=== PATIENT | female | born 1930 | race Caucasian/White ===

== ENCOUNTER 2017-05-10 12:11 | Emergency (ER) | payer MEDICARE, BC ==
[~2017-05-10] VITALS: Ht 152.4 cm; Wt 54.4 kg
[~2017-05-10 12:11] MED LIST: ACET500T33 PO; ASPI-482 PO; ATOR10TA60 PO; CELE200C PO; CYAN100072 PO; DASA50TA PO; FURO-68 PO; FURO20TA3 PO; GABA-586 PO; LOSA50TA6 PO; METO25TA4 PO; METO50TA2 PO; POTA10TA12 PO
[2017-05-10] MEDS ORDERED: fentaNYL PF VIAL 100 MCG/2 ML VIAL IV PRN (14:15)
[2017-05-10] MEDS ORDERED: ONDANSETRON PF 4 MG/2 ML VIAL. IV ONE (14:15)
--- NOTE | 2017-05-10 14:49 | EKG ---
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
[2017-05-10 14:55] LABS: BILIRUBIN,URINE NEGATIVE (NEG); GLUCOSE,URINE NEGATIVE (NEG)
[2017-05-10 14:56] LABS: NITRITE,URINE NEGATIVE (NEG); PROTEIN,URINE NEGATIVE (NEG-TRACE)
[2017-05-10 14:58] LABS: BACTERIA,URINE FEW /HPF (0-FEW); RBC,URINE OCC /HPF (0-2); SQUAMOUS EPITHELIAL CELL,UR OCC /LPF
[2017-05-10 15:17] LABS: BASO # 0.1 x10^3/uL (0.0-0.2); BASO % 1 % (0-3); EOS % 1 % (0-3); HEMOGLOBIN 13.8 g/dL (12.0-15.5); LYMPH # 1.8 x10^3/uL (1.0-4.8); LYMPH % 18 % (24-48); MEAN CORPUSCULAR HEMOGLOBIN 31 pg (25-35); MEAN CORPUSCULAR HGB CONC 35 g/dL (31-37); MEAN CORPUSCULAR VOLUME 89 fL (79-100); MONO % 6 % (0-9); NEUT % 74 % (31-73); PLATELET COUNT 320 x10^3/uL (140-400); RED BLOOD COUNT 4.48 x10^6/uL (3.50-5.40); RED CELL DISTRIBUTION WIDTH 13.1 % (11.5-14.5); WHITE BLOOD COUNT 9.8 x10^3/uL (4.0-11.0)
[2017-05-10 15:29] LABS: CALCIUM 9.3 mg/dL (8.5-10.1); CREATININE 0.6 mg/dL (0.6-1.0); GFR 94.8; POTASSIUM 4.3 mmol/L (3.5-5.1)
[2017-05-10 15:33] LABS: ALBUMIN/GLOBULIN RATIO 1.1 (1.0-1.7); TOTAL BILIRUBIN 1.1 mg/dL (0.2-1.0); TOTAL PROTEIN 7.8 g/dL (6.4-8.2)
[2017-05-10] MEDS ORDERED: IOHEXOL 300 MG/ML 75 ML VIAL IV ONE (15:45)
--- NOTE | 2017-05-10 16:25 | RAD ---
Indication abdominal pain. Weight loss. The history of leukemia and radiation therapy is noted. Axial images through the abdomen and pelvis were obtained. Approximately 70 cc of Isovue-300 was administered intravenously. No oral contrast was administered. No similar imaging is available. There is coronary artery calcification. No acute or significant finding is seen at either lung base. The liver appears unremarkable and the gallbladder appears grossly normal. No splenic abnormality is seen. The spleen is normal in size. No pancreatic abnormality is seen. The adrenal glands and kidneys appear unremarkable. Significant central or retroperitoneal adenopathy is not seen and an acute finding in the abdomen is not seen. In the pelvis no acute or significant finding is seen. There is scoliosis. There are degenerative changes involving the lumbar spine predominantly centered at L4-5. There is marked disc space narrowing at this level and there is moderate anterior spondylolisthesis of L4 relative to L5 IMPRESSION: No acute finding seen in the abdomen or pelvis. Chronic musculoskeletal changes
[2017-05-10] MEDS ORDERED: IV NORMAL SALINE 500ML BAG 500 ML IV ONE (16:45)
[2017-05-10] MEDS ORDERED: ONDA4TAB7 PO (18:20)
[2017-05-10 18:38] VITALS: BP 140/85
--- NOTE | 2017-05-10 21:06 | ED.ADGEN ---
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 Patient states that when she wakes up in the morning she experiences a left-sided cramping abdominal pain, associated with nausea. She states that this tends to improve after she eats breakfast in the morning, but has been intermittent throughout her last several days as stated. She states that she sometimes feels as though she has less of an appetite. She denies any vomiting or diarrhea, states her last bowel movement was yesterday, and although with small was normal. She denies any injuries, any recent travel or surgery, any swelling extremities, any rashes, any upper or lower respiratory type symptoms, any chest pain or shortness of breath. Patient was seen by her primary care provider, and sent to the ED for additional evaluation due to the persistence of her symptoms. She is not previously had any abdominal surgeries. Review of Systems Review of Systems Constitutional: Denies fever or chills. [] Eyes: Denies change in visual acuity. [] HENT: Denies nasal congestion or sore throat. [] Respiratory: Denies cough or shortness of breath. [] Cardiovascular: Denies chest pain or edema. [] GI: Left-sided abdominal pain, aching, intermittent, associated with nausea. : Denies dysuria. [] Musculoskeletal: Denies back pain or joint pain. [] Integument: Denies rash. [] Neurologic: Denies headache, focal weakness or sensory changes. [] Endocrine: Denies polyuria or polydipsia. [] Lymphatic: Denies swollen glands. [] Psychiatric: Denies depression or anxiety. [] Current Medications Current Medications Current Medications Medications (Trade) Dose Ordered Sig/Moses Start Time Stop Time Status Last Admin Dose Admin Fentanyl Citrate (Fentanyl 2ml Vial) 25 mcg PRN Q15MIN PRN 05/10/17 14:15 05/10/17 18:53 DC 05/10/17 15:14 25 MCG Iohexol (Omnipaque 300 Mg/ml) 75 ml 1X ONCE 05/10/17 15:45 05/10/17 15:46 DC 05/10/17 15:48 75 ML Ondansetron HCl (Zofran) 4 mg 1X ONCE 05/10/17 14:15 05/10/17 14:16 DC 05/10/17 15:14 4 MG Sodium Chloride 500 ml @ 500 mls/hr 1X ONCE 05/10/17 16:45 05/10/17 17:44 DC 05/10/17 16:45 500 MLS/HR Allergies Allergies Allergies Coded Allergies Type Severity Reaction Last Updated Verified No Known Drug Allergies 08/31/16 No Physical Exam Physical Exam Constitutional: Well developed, well nourished, no acute distress, non-toxic appearance. [] HENT: Normocephalic, atraumatic, bilateral external ears normal, oropharynx moist, no oral exudates, nose normal. [] Eyes: PERRLA, EOMI, conjunctiva normal, no discharge. [] Neck: Normal range of motion, no tenderness, supple, no stridor. [] Cardiovascular:Heart rate regular rhythm, no murmur, S1, S2, rubs or gallops. [] Lungs & Thorax: Bilateral breath sounds clear to auscultation, no wheezing, rhonchi, rales. No chest or crepitus or tenderness. [] Abdomen: Bowel sounds normal, soft, no tenderness, no rebound, rigidity, no guarding, no masses, no pulsatile masses. [] Skin: Warm, dry, no erythema, no rash. [] Back: No tenderness, no CVA tenderness. [] Extremities: No tenderness, no cyanosis, no clubbing, ROM intact, no edema. [] Neurologic: Alert and oriented X 3, normal motor function, normal sensory function, no focal deficits noted. [] Psychologic: Affect normal, judgement normal, mood normal. [] Current Patient Data Vital Signs Vital Signs Date Time Temp Pulse Resp B/P (MAP) Pulse Ox O2 Delivery O2 Flow Rate FiO2 05/10/17 18:38 90 24 140/85 (103) 95 Room Air 05/10/17 14:05 97.8 97.8 Lab Values Laboratory Tests Test 05/10/17 14:03 05/10/17 14:58 Urine Collection Type Void Urine Color Yellow Urine Clarity Clear Urine pH 6.0 Urine Specific [place] 1.020 Urine Protein Negative mg/dL (NEG-TRACE) Urine Glucose (UA) Negative mg/dL (NEG) Urine Ketones (Stick) 15 mg/dL (NEG) Urine Blood Trace (NEG) Urine Nitrite Negative (NEG) Urine Bilirubin Negative (NEG) Urine Urobilinogen Dipstick 1.0 mg/dL (0.2 mg/dL) Urine Leukocyte Esterase Small (NEG) Urine RBC Occ /HPF (0-2) Urine WBC 1-4 /HPF (0-4) Urine Squamous Epithelial Cells Occ /LPF Urine Bacteria Few /HPF (0-FEW) Urine Mucus Slight /LPF White Blood Count 9.8 x10^3/uL (4.0-11.0) Red Blood Count 4.48 x10^6/uL (3.50-5.40) Hemoglobin 13.8 g/dL (12.0-15.5) Hematocrit 40.0 % (36.0-47.0) Mean Corpuscular Volume 89 fL (79-100) Mean Corpuscular Hemoglobin 31 pg (25-35) Mean Corpuscular Hemoglobin Concent 35 g/dL (31-37) Red Cell Distribution Width 13.1 % (11.5-14.5) Platelet Count 320 x10^3/uL (140-400) Neutrophils (%) (Auto) 74 % (31-73) H Lymphocytes (%) (Auto) 18 % (24-48) L Monocytes (%) (Auto) 6 % (0-9) Eosinophils (%) (Auto) 1 % (0-3) Basophils (%) (Auto) 1 % (0-3) Neutrophils # (Auto) 7.3 x10^3uL (1.8-7.7) Lymphocytes # (Auto) 1.8 x10^3/uL (1.0-4.8) Monocytes # (Auto) 0.5 x10^3/uL (0.0-1.1) Eosinophils # (Auto) 0.0 x10^3/uL (0.0-0.7) Basophils # (Auto) 0.1 x10^3/uL (0.0-0.2) Sodium Level 140 mmol/L (136-145) Potassium Level 4.3 mmol/L (3.5-5.1) Chloride Level 100 mmol/L (98-107) Carbon Dioxide Level 30 mmol/L (21-32) Anion Gap 10 (6-14) Blood Urea Nitrogen 11 mg/dL (7-20) Creatinine 0.6 mg/dL (0.6-1.0) Estimated GFR (Cockcroft-Gault) 94.8 BUN/Creatinine Ratio 18 (6-20) Glucose Level 104 mg/dL (70-99) H Lactic Acid Level 1.0 mmol/L (0.4-2.0) Calcium Level 9.3 mg/dL (8.5-10.1) Total Bilirubin 1.1 mg/dL (0.2-1.0) H Aspartate Amino Transferase (AST) 28 U/L (15-37) Alanine Aminotransferase (ALT) 27 U/L (14-59) Alkaline Phosphatase 98 U/L (46-116) Total Protein 7.8 g/dL (6.4-8.2) Albumin 4.0 g/dL (3.4-5.0) Albumin/Globulin Ratio 1.1 (1.0-1.7) Lipase 263 U/L (73-393) Laboratory Tests 05/10/17 14:58 Laboratory Tests 05/10/17 14:58 EKG EKG EC: Sinus rhythm, heart rate 86 beats minute, left axis deviation, mild baseline artifact noted, QTc of 436, [place] 170, QRS is 62, no ST elevations or depressions identified. Aside from left axis deviation, no other abnormalities identified. As interpreted by me. [] Radiology/Procedures Radiology/Procedures [] [address] [place] [address] IMAGING REPORT Signed PATIENT: HERMES STEVEN ACCOUNT: [id number] : 1930 LOCATION: ER AGE: 86 SEX: F EXAM STATUS: REG ER ORD. PHYSICIAN: SAIDA KNIGHT DO REASON: abd pain/weight loss PROCEDURE: CT ABD PELV W/ IV CONTRST ONLY Indication abdominal pain. Weight loss. The history of leukemia and radiation therapy is noted. Axial images through the abdomen and pelvis were obtained. Approximately 70 cc of Isovue-300 was administered intravenously. No oral contrast was administered. No similar imaging is available. There is coronary artery calcification. No acute or significant finding is seen at either lung base. The liver appears unremarkable and the gallbladder appears grossly normal. No splenic abnormality is seen. The spleen is normal in size. No pancreatic abnormality is seen. The adrenal glands and kidneys appear unremarkable. Significant central or retroperitoneal adenopathy is not seen and an acute finding in the abdomen is not seen. In the pelvis no acute or significant finding is seen. There is scoliosis. There are degenerative changes involving the lumbar spine predominantly centered at L4-5. There is marked disc space narrowing at this level and there is moderate anterior spondylolisthesis of L4 relative to L5 IMPRESSION: No acute finding seen in the abdomen or pelvis. Chronic musculoskeletal changes DICTATED and SIGNED BY: MANUEL ALTMAN MD DATE: 05/10/17 1614 CC: SHERRELL WOOD MD; SAIDA KNIGHT DO ~ Course & Med Decision Making Course & Med Decision Making Pertinent Labs and Imaging studies reviewed. (See chart for details) Patient well-appearing, isn't experiencing any symptoms currently in the ED. States she has had weight loss over the past year. Based on age and symptoms, will obtain CT imaging, laboratory studies, patient voices understanding and agreement. Lipitor studies reveal urinalysis with mild ketones at 15, otherwise unremarkable. CT of abdomen and pelvis did not reveal any evidence of acute abdominal symptoms, patient noted to have musculoskeletal changes, findings as above were discussed with patient, she states that she is feeling much better, and would like to go home. However patient's daughter has left the emergency department as she had to perform work duties, and patient would like to have the daughter present for additional conversation. We did speak with the patient' s daughter, who was able to return to the emergency department, I did review findings as above with patient's daughter as well, she is in agreement along with her mother with plan for the patient be discharged home, to continue medications as directed, to follow-up with a primary care provider, and patient states she will return to the ED if any new or concerning symptoms develop. She was given a 500 mL bolus of normal saline, is tolerating by mouth fluids in the ED without issue. Patient discharged home in stable condition with her daughter with plan and precautions as above. Dragon Disclaimer Dragon Disclaimer This electronic medical record was generated, in whole or in part, using a voice recognition dictation system. Departure Impression: Primary Impression: Abdominal pain Disposition: 01 HOME, SELF-CARE Condition: IMPROVED Scripts Ondansetron Hcl (ZOFRAN) 4 Mg Tablet 1 TAB PO Q8HRS Y for NAUSEA, #12 TAB Prov: SAIDA KNIGHT DO 05/10/17 SAIDA KNIGHT DO May 10, 2017 21:06
== END 2017-05-10 18:45 | disposition home or self-care (01) ==
LOC: ER 12:11
DX: R10.9 Unspecified abdominal pain (principal); R11.0 Nausea; E78.00 Pure hypercholesterolemia, unspecified; I27.2 Other secondary pulmonary hypertension; I11.0 Hypertensive heart disease with heart failure; I50.9 Heart failure, unspecified; C92.10 Chronic myeloid leukemia, BCR/ABL-positive, not having achieved remission
CPT/HCPCS: 36415; 74177; 80053; 81001; 83605; 83690; 85027; 87086; 93005; 96361; 96374; 96375; 99285; J2405; J3010; J7040; Q9967

== ENCOUNTER 2019-09-07 13:03 | Inpatient (IN) | payer MEDICARE, BC ==
[~2019-09-07] VITALS: Ht 152.4 cm; Wt 65.4 kg
[~2019-09-07 13:03] MED LIST changes: -GABA-586 PO; +GABA300C18 PO; +LOSA-73 PO; -LOSA50TA6 PO; -METO50TA2 PO; +METO50TA6 PO; +ONDA4TAB7 PO
[2019-09-07] MEDS ORDERED: IPRATRPIUM/ALBUTEROL 0.5/2.5MG 3 ML NEBU. NEB ONE (13:15)
[2019-09-07 13:37] LABS: BASO % 0 % (0-3); EOS # 0.2 x10^3/uL (0.0-0.7); EOS % 2 % (0-3); HEMATOCRIT 41.6 % (36.0-47.0); HEMOGLOBIN 13.6 g/dL (12.0-15.5); LYMPH % 19 % (24-48); MEAN CORPUSCULAR HEMOGLOBIN 30 pg (25-35); MEAN CORPUSCULAR HGB CONC 33 g/dL (31-37); MEAN CORPUSCULAR VOLUME 93 fL (79-100); MONO # 0.5 x10^3/uL (0.0-1.1); MONO % 4 % (0-9); NEUT # 7.9 x10^3/uL (1.8-7.7); NEUT % 75 % (31-73); PLATELET COUNT 319 x10^3/uL (140-400); RED BLOOD COUNT 4.49 x10^6/uL (3.50-5.40); RED CELL DISTRIBUTION WIDTH 13.7 % (11.5-14.5); WHITE BLOOD COUNT 10.6 x10^3/uL (4.0-11.0)
--- NOTE | 2019-09-07 13:43 | RAD ---
PORTABLE CHEST 1V Clinical History: Aspiration Technique: AP view of the chest was obtained at 09/07/2019 1:10 PM. Comparison: September 10, 2016. Findings: The heart is mildly enlarged. The pulmonary vessels appear normal. There is multiple calcified granuloma on the right. Impression: Stable appearance of the chest. Electronically signed by: Tacho Lentz III, MD (09/07/2019 1:40 PM) [facility]
[2019-09-07 13:45] LABS: PROTHROMBIN TIME PATIENT 12.7 SEC (11.7-14.0)
[2019-09-07 13:46] LABS: CALCIUM 8.7 mg/dL (8.5-10.1); CREATININE 0.8 mg/dL (0.6-1.0); GFR 67.5; POTASSIUM 3.5 mmol/L (3.5-5.1)
[2019-09-07 13:51] LABS: ALBUMIN 3.8 g/dL (3.4-5.0); TOTAL BILIRUBIN 0.8 mg/dL (0.2-1.0); TOTAL PROTEIN 7.7 g/dL (6.4-8.2)
--- NOTE | 2019-09-07 14:49 | PDOC1 ---
History and Physical Date of Admission Date of Admission DATE: 09/07/19 TIME: 14:44 Identification/Chief Complaint Chief Complaint Choking Source Source: Patient History of Present Illness History of Present Illness Ms Adams is an 89yo F w/ PMHx HTN, CML in remission who came in choking on piece of meat, was hypoxic into the 70s, received hemilich maneuver and dislodged the meat. Trop of 0.061 and glucose 174. CXR was clear. Her adopted daughter is bedside. She is in good spirits and asking for a soft diet for dinner. Past Medical History Cardiovascular: CHF, HTN, Valve insufficiency Pulmonary: Bronchitis GI: Constipation Heme/Onc: Cancer (CML) Hepatobiliary: No pertinent hx Psych: No pertinent hx Rheumatologic: No pertinent hx Infectious disease: No pertinent hx ENT: No pertinent hx Renal/: No pertinent hx Endocrine: No pertinent hx Dermatology: No pertinent hx Past Surgical History Past Surgical History: No pertinent history Family History Family History: Hypertension Social History Smoke: No ALCOHOL: none Drugs: None Current Medications Current Medications Current Medications Albuterol/ Ipratropium (Duoneb) 3 ml 1X ONCE NEB Last administered on 09/07/19at 13:25; Start 09/07/19 at 13:15; Stop 09/07/19 at 13:16; Status DC Albuterol/ Ipratropium (Duoneb) 3 ml RTQID NEB ; Start 09/07/19 at 16:00; Stop 09/08/19 at 15:59 Active Scripts Active Zofran (Ondansetron Hcl) 4 Mg Tablet 1 Tab PO Q8HRS PRN Lasix (Furosemide) 40 Mg Tablet 40 Mg PO BID Reported Atorvastatin Calcium 10 Mg Tablet 10 Mg PO DAILY Potassium Chloride 10 Meq Tablet.er 30 Meq PO DAILY Sprycel (Dasatinib) 50 Mg Tablet 50 Mg PO DAILY Metoprolol Tartrate 25 Mg Tablet 1 Tab PO DAILY16 Celebrex (Celecoxib) 200 Mg Capsule 1 Cap PO DAILY Tylenol Extra Strength (Acetaminophen) 500 Mg Tablet 500 Mg PO DAILY B-12 (Cyanocobalamin (Vitamin B-12)) 1,000 Mcg Tablet 1,000 Mcg PO DAILY Aspir 81 (Aspirin) 81 Mg Tablet.dr 1 Tab PO DAILY Metoprolol Tartrate 50 Mg Tablet 1 Tab PO DAILY07 Gabapentin 300 Mg Capsule 300 Mg PO BID Losartan Potassium 50 Mg Tablet 50 Mg PO DAILY Allergies Allergies: Coded Allergies: No Known Drug Allergies (Unverified , 08/31/16) ROS General: No: Chills, Night Sweats, Fatigue, Malaise, Appetite, Other PSYCHOLOGICAL ROS: No: Anxiety, Behavioral Disorder, Concentration difficultie, Decreased libido, Depression, Disorientation, Hallucinations, Hostility, Irritablity, Memory difficulties, Mood Swings, Obsessive thoughts, Physical abuse, Sexual abuse, Sleep disturbances, Suicidal ideation, Other Eyes: No Blurry vision, No Decreased vision, No Double vision, No Dry eyes, No Excessive tearing, No Eye Pain, No Itchy Eyes, No Loss of vision, No Photophobia, No Scotomata, No Uses contacts, No Uses glasses, No Other HEENT: No: Heacaches, Visual Changes, Hearing change, Nasal congestion, Nasal discharge, Oral lesions, Sinus pain, Sore Throat, Epistaxis, Sneezing, Snoring, Tinnitus, Vertigo, Vocal changes, Other ALLERGY AND IMMUNOLOGY: No: Hives, Insect Bite Sensitivity, Itchy/Watery Eyes, Nasal Congestion, Post Nasal Drip, Seasonal Allergies, Other Hematological and Lymphatic: No: Bleeding Problems, Blood Clots, Blood Transfusions, Brusing, Night Sweats, Pallor, Swollen Lymph Nodes, Other ENDOCRINE: No: Breast Changes, Galactorrhea, Hair Pattern Changes, Hot Flashes, Malaise/lethargy, Mood Swings, Palpitations, Polydipsia/polyuria, Skin Changes, Temperature Intolerance, Unexpected Weight Changes, Other Breast: No New/Changing Breast Lumps, No Nipple changes, No Nipple discharge, No Other Respiratory: No: Cough, Hemoptysis, Orthopnea, Pleuritic Pain, Shortness of breath, SOB with excertion, Sputum Changes, Stridor, Tachypnea, Wheezing, Other Cardiovascular: No Chest Pain, No Palpitations, No Orthopnea, No Paroxysmal Noc. Dyspnea, No Edema, No Lt Headedness, No Other Gastrointestinal: No Nausea, No Vomiting, No Abdominal Pain, No Diarrhea, No Constipation, No Melena, No Hematochezia, No Other Genitourinary: No Dysuria, No Frequency, No Incontinence, No Hematuria, No Retention, No Discharge, No Urgency, No Pain, No Flank Pain, No Other, No , No , No , No , No , No , No Musculoskeletal: No Gait Disturbance, No Joint Pain, No Joint Stiffness, No Joint Swelling, No Muscle Pain, No Muscular Weakness, No Pain In:, No Swelling In:, No Other Neurological: No Behavorial Changes, No Bowel/Bladder ControlChng, No Confusion, No Dizziness, No Gait Disturbance, No Headaches, No Impaired Coord/balance, No Memory Loss, No Numbness/Tingling, No Seizures, No Speech Problems, No Tremors, No Visual Changes, No Weakness, No Other Skin: No Dry Skin, No Eczema, No Hair Changes, No Lumps, No Mole Changes, No Mottling, No Nail Changes, No Pruritus, No Rash, No Skin Lesion Changes, No Other, No Acne Physical Exam General: Alert, Oriented X3, Cooperative, No acute distress HEENT: Atraumatic, PERRLA, EOMI, Mucous membr. moist/pink Lungs: Clear to auscultation, Normal air movement Heart: S1S2, RRR, no thrills, no rubs, no gallops, no murmurs Abdomen: Normal bowel sounds, Soft, No tenderness, No hepatosplenomegaly, No masses Rectal Exam: not examined Extremities: No clubbing, No cyanosis, No edema, Normal pulses, No tenderness/swelling Skin: No rashes, No breakdown, No significant lesion Neuro: Normal gait, Normal speech, Strength at 5/5 X4 ext, Normal tone, Sensation intact, Cranial nerves 3-12 NL, Reflexes 2+ Psych/Mental Status: Mental status NL, Mood NL Vitals Vitals Vital Signs Date Time Temp Pulse Resp B/P (MAP) Pulse Ox O2 Delivery O2 Flow Rate FiO2 09/07/19 13:25 96 Nasal Cannula 2.0 09/07/19 13:06 98.0 95 10 165/89 (114) 98.0 Labs Labs Laboratory Tests Test 09/07/19 13:28 White Blood Count 10.6 x10^3/uL (4.0-11.0) Red Blood Count 4.49 x10^6/uL (3.50-5.40) Hemoglobin 13.6 g/dL (12.0-15.5) Hematocrit 41.6 % (36.0-47.0) Mean Corpuscular Volume 93 fL (79-100) Mean Corpuscular Hemoglobin 30 pg (25-35) Mean Corpuscular Hemoglobin Concent 33 g/dL (31-37) Red Cell Distribution Width 13.7 % (11.5-14.5) Platelet Count 319 x10^3/uL (140-400) Neutrophils (%) (Auto) 75 % (31-73) Lymphocytes (%) (Auto) 19 % (24-48) Monocytes (%) (Auto) 4 % (0-9) Eosinophils (%) (Auto) 2 % (0-3) Basophils (%) (Auto) 0 % (0-3) Neutrophils # (Auto) 7.9 x10^3/uL (1.8-7.7) Lymphocytes # (Auto) 2.0 x10^3/uL (1.0-4.8) Monocytes # (Auto) 0.5 x10^3/uL (0.0-1.1) Eosinophils # (Auto) 0.2 x10^3/uL (0.0-0.7) Basophils # (Auto) 0.0 x10^3/uL (0.0-0.2) Prothrombin Time 12.7 SEC (11.7-14.0) Prothromb Time International Ratio 1.0 (0.8-1.1) Sodium Level 146 mmol/L (136-145) Potassium Level 3.5 mmol/L (3.5-5.1) Chloride Level 105 mmol/L (98-107) Carbon Dioxide Level 29 mmol/L (21-32) Anion Gap 12 (6-14) Blood Urea Nitrogen 13 mg/dL (7-20) Creatinine 0.8 mg/dL (0.6-1.0) Estimated GFR (Cockcroft-Gault) 67.5 BUN/Creatinine Ratio 16 (6-20) Glucose Level 174 mg/dL (70-99) Calcium Level 8.7 mg/dL (8.5-10.1) Total Bilirubin 0.8 mg/dL (0.2-1.0) Aspartate Amino Transf (AST/SGOT) 27 U/L (15-37) Alanine Aminotransferase (ALT/SGPT) 24 U/L (14-59) Alkaline Phosphatase 87 U/L (46-116) Troponin I Quantitative 0.061 ng/mL (0.000-0.055) GN-Sne-Y-Type Natriuretic Peptide 272 pg/mL (0-449) Total Protein 7.7 g/dL (6.4-8.2) Albumin 3.8 g/dL (3.4-5.0) Albumin/Globulin Ratio 1.0 (1.0-1.7) Laboratory Tests Test 09/07/19 13:28 White Blood Count 10.6 x10^3/uL (4.0-11.0) Red Blood Count 4.49 x10^6/uL (3.50-5.40) Hemoglobin 13.6 g/dL (12.0-15.5) Hematocrit 41.6 % (36.0-47.0) Mean Corpuscular Volume 93 fL (79-100) Mean Corpuscular Hemoglobin 30 pg (25-35) Mean Corpuscular Hemoglobin Concent 33 g/dL (31-37) Red Cell Distribution Width 13.7 % (11.5-14.5) Platelet Count 319 x10^3/uL (140-400) Neutrophils (%) (Auto) 75 % (31-73) Lymphocytes (%) (Auto) 19 % (24-48) Monocytes (%) (Auto) 4 % (0-9) Eosinophils (%) (Auto) 2 % (0-3) Basophils (%) (Auto) 0 % (0-3) Neutrophils # (Auto) 7.9 x10^3/uL (1.8-7.7) Lymphocytes # (Auto) 2.0 x10^3/uL (1.0-4.8) Monocytes # (Auto) 0.5 x10^3/uL (0.0-1.1) Eosinophils # (Auto) 0.2 x10^3/uL (0.0-0.7) Basophils # (Auto) 0.0 x10^3/uL (0.0-0.2) Prothrombin Time 12.7 SEC (11.7-14.0) Prothromb Time International Ratio 1.0 (0.8-1.1) Sodium Level 146 mmol/L (136-145) Potassium Level 3.5 mmol/L (3.5-5.1) Chloride Level 105 mmol/L (98-107) Carbon Dioxide Level 29 mmol/L (21-32) Anion Gap 12 (6-14) Blood Urea Nitrogen 13 mg/dL (7-20) Creatinine 0.8 mg/dL (0.6-1.0) Estimated GFR (Cockcroft-Gault) 67.5 BUN/Creatinine Ratio 16 (6-20) Glucose Level 174 mg/dL (70-99) Calcium Level 8.7 mg/dL (8.5-10.1) Total Bilirubin 0.8 mg/dL (0.2-1.0) Aspartate Amino Transf (AST/SGOT) 27 U/L (15-37) Alanine Aminotransferase (ALT/SGPT) 24 U/L (14-59) Alkaline Phosphatase 87 U/L (46-116) Troponin I Quantitative 0.061 ng/mL (0.000-0.055) SI-Zjd-Q-Type Natriuretic Peptide 272 pg/mL (0-449) Total Protein 7.7 g/dL (6.4-8.2) Albumin 3.8 g/dL (3.4-5.0) Albumin/Globulin Ratio 1.0 (1.0-1.7) Images Images CXR - The heart is mildly enlarged. The pulmonary vessels appear normal. There is multiple calcified granuloma on the right. Impression: Stable appearance of the chest. VTE Prophylaxis Ordered VTE Prophylaxis Devices: Yes VTE Pharmacological Prophylaxi: Yes Assessment/Plan Assessment/Plan A/P: Acute hypoxia - 2/2 choking episode. s/p heimlich maneuver. Feeling improved. Will wean O2 as tolerated, no pulm history Elevated troponin - likely from transient hypoxemia and chest trauma with compression. will trend out Chocking - meat lodged in esophagus now out. 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 HTN - on metoprolol HLD - cont statin Hyperglycemia - likely stress related, monitor FEN - General diet PPX - lovenox DNR/DNI Dispo - observation for choking episodes NINA JACKSON MD Sep 07, 2019 14:49
[2019-09-07] MEDS: IPRATRPIUM/ALBUTEROL 0.5/2.5MG 3 ML NEBU. NEB SCH ×2 (15:38→19:53)
--- NOTE | 2019-09-07 16:09 | PHYS DOC ---
Past Medical History Past Medical History: Cancer, High Cholesterol, Hypertension, Other Additional Past Medical Histor: pulmonary htn, mitral valve regurgitation, CLM Past Surgical History: Other Additional Past Surgical Histo: dilation and curretage Alcohol Use: None Drug Use: None Adult General Chief Complaint Chief Complaint: CHOKING HPI HPI Patient is a 89 year old F P/W CC OF CHOKING. CHOKED ON A piece of steak during dinner at a decreased level of consciousness family performed Heimlich A thinks something came out on cadd instructor arrival sat was in the 70s was wheezing had a decreased mental status the even oxygen noticed gradual improvement finally on arrival to the emergency room the respiratory rate which had been slow initially was improved a lot patient was awake and alert and was complaining of only mild shortness of breath at this time. 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 Did have pulmonary hypertension the setting of a cancer treated back in 2016 but that appears to have improved according to the family Review of Systems Review of Systems Constitutional: Denies fever or chills [] Eyes: Denies change in visual acuity, redness, or eye pain [] HENT: Denies nasal congestion or sore throat [] Musculoskeletal: Denies back pain or joint pain [] Integument: Denies rash or skin lesions [] Neurologic: Denies headache, focal weakness or sensory changes [] Endocrine: Denies polyuria or polydipsia [] All other systems were reviewed and found to be within normal limits, except as documented in this note. Current Medications Current Medications Current Medications Medications (Trade) Dose Ordered Sig/Moses Start Time Stop Time Status Last Admin Dose Admin Albuterol/ Ipratropium (Duoneb) 3 ml 1X ONCE 09/07/19 13:15 09/07/19 13:16 DC 09/07/19 13:25 3 ML Allergies Allergies Allergies Coded Allergies Type Severity Reaction Last Updated Verified No Known Drug Allergies 08/31/16 No Physical Exam Physical Exam Constitutional: Well developed, well nourished, no acute distress, non-toxic appearance. [] HENT: Normocephalic, atraumatic, bilateral external ears normal, oropharynx moist, no oral exudates, nose normal. []No masses or lesions seen in the mouth no foreign body seen in the posterior oropharynx Eyes: PERRLA, EOMI, conjunctiva normal, no discharge. [] Neck: Normal range of motion, no tenderness, supple, no stridor. [] Cardiovascular:Heart rate regular rhythm, no murmur [] Lungs & Thorax: Faint wheezing and mild increased respiratory effort but overall speaking full sentences and quite well-appearing abdomen is soft nontender nondistended ss, no masses, no pulsatile masses. [] Skin: Warm, dry, no erythema, no rash. [] Back: No tenderness, no CVA tenderness. [] Extremities: No tenderness, no cyanosis, no clubbing, ROM intact, no edema. [] Neurologic: Alert and oriented X 3, normal motor function, normal sensory function, no focal deficits noted. [] Psychologic: Affect normal, judgement normal, mood normal. [] Current Patient Data Vital Signs Vital Signs Date Time Temp Pulse Resp B/P (MAP) Pulse Ox O2 Delivery O2 Flow Rate FiO2 09/07/19 14:00 96 25 139/74 (95) 95 2.0 09/07/19 13:25 Nasal Cannula 09/07/19 13:06 98.0 98.0 Lab Values Laboratory Tests Test 09/07/19 13:28 White Blood Count 10.6 x10^3/uL (4.0-11.0) Red Blood Count 4.49 x10^6/uL (3.50-5.40) Hemoglobin 13.6 g/dL (12.0-15.5) Hematocrit 41.6 % (36.0-47.0) Mean Corpuscular Volume 93 fL (79-100) Mean Corpuscular Hemoglobin 30 pg (25-35) Mean Corpuscular Hemoglobin Concent 33 g/dL (31-37) Red Cell Distribution Width 13.7 % (11.5-14.5) Platelet Count 319 x10^3/uL (140-400) Neutrophils (%) (Auto) 75 % (31-73) H Lymphocytes (%) (Auto) 19 % (24-48) L Monocytes (%) (Auto) 4 % (0-9) Eosinophils (%) (Auto) 2 % (0-3) Basophils (%) (Auto) 0 % (0-3) Neutrophils # (Auto) 7.9 x10^3/uL (1.8-7.7) H Lymphocytes # (Auto) 2.0 x10^3/uL (1.0-4.8) Monocytes # (Auto) 0.5 x10^3/uL (0.0-1.1) Eosinophils # (Auto) 0.2 x10^3/uL (0.0-0.7) Basophils # (Auto) 0.0 x10^3/uL (0.0-0.2) Prothrombin Time 12.7 SEC (11.7-14.0) Prothrombin Time INR 1.0 (0.8-1.1) Sodium Level 146 mmol/L (136-145) H Potassium Level 3.5 mmol/L (3.5-5.1) Chloride Level 105 mmol/L (98-107) Carbon Dioxide Level 29 mmol/L (21-32) Anion Gap 12 (6-14) Blood Urea Nitrogen 13 mg/dL (7-20) Creatinine 0.8 mg/dL (0.6-1.0) Estimated GFR (Cockcroft-Gault) 67.5 BUN/Creatinine Ratio 16 (6-20) Glucose Level 174 mg/dL (70-99) H Calcium Level 8.7 mg/dL (8.5-10.1) Total Bilirubin 0.8 mg/dL (0.2-1.0) Aspartate Amino Transferase (AST) 27 U/L (15-37) Alanine Aminotransferase (ALT) 24 U/L (14-59) Alkaline Phosphatase 87 U/L (46-116) Troponin I Quantitative 0.061 ng/mL (0.000-0.055) FP-Suo-V-Type Natriuretic Peptide 272 pg/mL (0-449) Total Protein 7.7 g/dL (6.4-8.2) Albumin 3.8 g/dL (3.4-5.0) Albumin/Globulin Ratio 1.0 (1.0-1.7) Laboratory Tests 09/07/19 13:28 Laboratory Tests 09/07/19 13:28 EKG EKG []Normal sinus rhythm rate of 93 no acute ischemic changes noted interpreted by me the time of encounter Radiology/Procedures Radiology/Procedures [] Impressions: Findings: The heart is mildly enlarged. The pulmonary vessels appear normal. There is multiple calcified granuloma on the right. Impression: Stable appearance of the chest. Electronically signed by: Richa Waller III, MD (09/07/2019 1:40 PM) [facility] DICTATED and SIGNED BY: RICHA WALLER III, MD DATE: 09/07/19 6158 Course & Med Decision Making Course & Med Decision Making Pertinent Labs and Imaging studies reviewed. (See chart for details) []89-year-old female with the above past medical history who is presenting after a witnessed choking episode apparently had significant risk for distress on arrival to the paramedics. Improved significantly in the emergency room she did receive the Heimlich maneuver prior to arrival she was satting in the mid 90s on 2 L nasal cannula had only mild wheezing perhaps she did have a aspiration event associated with this but she appears to be slowly improving. Given the age and the initial severity of symptoms I recommended admission overnight for observation doctor Baugh came to see the patient in the emergency room family is in agreement with the plan. At this point time given the negative chest x-ray opted not to give antibiotics. Dragon Disclaimer Dragon Disclaimer This electronic medical record was generated, in whole or in part, using a voice recognition dictation system. Departure Departure Impression: Primary Impression: Choking Disposition: ADMITTED INPATIENT Admitting Physician: HERMELINDO Condition: STABLE Referrals: SHERRELL WOOD MD (PCP) NEGRITO SHELTON MD Sep 07, 2019 16:09
[2019-09-07 16:15] VITALS: BP 147/64
[2019-09-07] MEDS ORDERED: ONDANSETRON ODT 4 MG TAB.RAPDIS. PO PRN (16:15)
[2019-09-07] MEDS ORDERED: NILO150C PO (17:08)
--- NOTE | 2019-09-07 17:45 | NUR ---
Lab result shows 2nd trop elevated 1.152. Pgd and spoke to primary physician who gave orders to consult cardiology. Will continue to monitor
[2019-09-07] MEDS: ENOXAPARIN 30 MG/0.3 ML SYRINGE. SQ SCH (18:02)
[2019-09-07 19:42] VITALS: BP 143/70
[2019-09-07 22:59] VITALS: BP 157/69
[2019-09-07] MEDS: GABAPENTIN 300 MG CAPSULE. PO SCH (23:33)
[2019-09-07] MEDS: ATORVASTATIN CALCIUM 10 MG TABLET. PO SCH (23:33)
[2019-09-08 03:50] VITALS: BP 165/75
[2019-09-08 07:34] VITALS: BP 172/77
[2019-09-08] MEDS: IPRATRPIUM/ALBUTEROL 0.5/2.5MG 3 ML NEBU. NEB SCH ×2 (07:37→11:48)
--- NOTE | 2019-09-08 08:22 | EKG ---
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
[2019-09-08] MEDS: DASATINIB 50 MG PO SCH (09:00)
[2019-09-08 09:07] LABS: CALCIUM 8.7 mg/dL (8.5-10.1); CREATININE 0.7 mg/dL (0.6-1.0); GFR 78.8; POTASSIUM 3.7 mmol/L (3.5-5.1)
[2019-09-08] MEDS: ACETAMINOPHEN 500 MG TABLET PO SCH (09:51)
[2019-09-08] MEDS: GABAPENTIN 300 MG CAPSULE. PO SCH ×2 (09:51→20:56)
[2019-09-08] MEDS: CYANOCOBALAMIN (VITAMIN B-12) 1,000 MCG TABLET. PO SCH (09:52)
[2019-09-08] MEDS: ASPIRIN ENTERIC COATED 81 MG TABLET.DR. PO SCH (09:52)
[2019-09-08] MEDS: POTASSIUM CHLORIDE 10 MEQ TABLET.ER. PO SCH (09:52)
[2019-09-08] MEDS: FUROSEMIDE 40 MG TABLET. PO SCH (09:53)
[2019-09-08] MEDS: METOPROLOL SUCC 24HR ER 50 MG TAB.ER.24H. PO SCH (09:54)
[2019-09-08] MEDS: LOSARTAN POTASSIUM 50 MG TABLET. PO SCH (09:55)
[2019-09-08 10:35] VITALS: BP 137/63
--- NOTE | 2019-09-08 11:57 | PDOC2 ---
CARDIAC CONSULT DATE OF CONSULT Date of Consult DATE: 09/08/19 TIME: 11:46 REASON FOR CONSULT Reason for Consult: Elevated troponin REFERRING PHYSICIAN Referring Physician: Dr. Paz SOURCE Source: Chart review, Patient HISTORY OF PRESENT ILLNESS HISTORY OF PRESENT ILLNESS This is a 89 female who presented secondary to hypoxia and altered mental status. Patient was out to eat yesterday with family following faith. Was eating piece of steak and got lodged in her through. Reports it would go down or come back up. Family said she turned blue in the face. EMS was called. Son in law performed Heimlich maneuver. Was hypoxic with O2 sat in the 70's upon EMS arrival.. Troponin was checked and noted to be elevated, which prompted this consult. Patient denies any chest pain, palpitations, dizziness, diaphoresis, or nausea/vomiting. Does have a history of valvular insufficiency, which is being medically managed. Patient expressed desire for medical management as she does not was any surgeries. Previously followed with Dr. Spears. PAST MEDICAL HISTORY Cardiovascular: CHF, HTN, Hyperlipidemia, Valve insufficiency GI: GERD Heme/Onc: Other (CML) Musculoskeletal: Osteoarthritis PAST SURGICAL HISTORY Past Surgical History: No pertinent history FAMILY HISTORY Family History: Coronary Artery Disease, Diabetes, Hypertension SOCIAL HISTORY Smoke: No ALCOHOL: none Drugs: None Lives: Alone CURRENT MEDICATIONS CURRENT MEDICATIONS Current Medications Medications (Trade) Dose Ordered Sig/Moses Route PRN Reason Start Time Stop Time Status Last Admin Dose Admin Albuterol/ Ipratropium (Duoneb) 3 ml 1X ONCE NEB 09/07/19 13:15 09/07/19 13:16 DC 09/07/19 13:25 Albuterol/ Ipratropium (Duoneb) 3 ml RTQID NEB 09/07/19 16:00 09/08/19 15:59 09/08/19 07:37 Acetaminophen (Tylenol) 500 mg DAILY PO 09/08/19 09:00 09/08/19 09:51 Aspirin (Ecotrin) 81 mg DAILY PO 09/08/19 09:00 09/08/19 09:52 Atorvastatin Calcium (Lipitor) 10 mg QHS PO 09/07/19 21:00 09/07/19 23:33 Cyanocobalamin (Vitamin B-12) 1,000 mcg DAILY PO 09/08/19 09:00 09/08/19 09:52 Furosemide (Lasix) 40 mg DAILY PO 09/08/19 09:00 09/08/19 09:53 Gabapentin (Neurontin) 300 mg BID PO 09/07/19 21:00 09/08/19 09:51 Losartan Potassium (Cozaar) 50 mg DAILY PO 09/08/19 09:00 09/08/19 09:55 Potassium Chloride (Klor-Con) 30 meq DAILY PO 09/08/19 09:00 09/08/19 09:52 Metoprolol Succinate (Toprol Xl) 50 mg DAILY PO 09/08/19 09:00 09/08/19 09:54 Enoxaparin Sodium (Lovenox 30mg Syringe) 30 mg Q24H SQ 09/07/19 16:00 09/07/19 18:02 ALLERGIES ALLERGIES: Coded Allergies: No Known Drug Allergies (Unverified , 08/31/16) ROS Review of System 14 point ROS conducted with pertinent positives noted above in above in HPI. PHYSICAL EXAM General: Alert, Oriented X3, Cooperative, No acute distress HEENT: Atraumatic, Mucous membr. moist/pink Lungs: Clear to auscultation, Normal air movement Heart: Regular rate, Normal S1, Normal S2, Other (2/6 systolic murmur ) Abdomen: Soft, No tenderness Extremities: No edema, Normal pulses Skin: No breakdown, No significant lesion Neuro: Normal speech, Sensation intact Psych/Mental Status: Mental status NL, Mood NL MUSCULOSKELETAL: Osteoarthritic changes both hands VITALS/I&O VITALS/I&O: Vital Signs Date Time Temp Pulse Resp B/P (MAP) Pulse Ox O2 Delivery O2 Flow Rate FiO2 09/08/19 10:35 98.1 70 16 137/63 (87) 94 Room Air 98.1 09/07/19 15:40 2.0 I & O 09/07/19 09/07/19 09/08/19 15:00 23:00 07:00 Intake Total 200 ml Output Total 300 ml 200 ml Balance -300 ml 0 ml LABS Lab: Laboratory Tests Test 09/07/19 13:28 09/07/19 17:30 09/07/19 20:15 09/08/19 07:30 White Blood Count 10.6 x10^3/uL (4.0-11.0) Red Blood Count 4.49 x10^6/uL (3.50-5.40) Hemoglobin 13.6 g/dL (12.0-15.5) Hematocrit 41.6 % (36.0-47.0) Mean Corpuscular Volume 93 fL (79-100) Mean Corpuscular Hemoglobin 30 pg (25-35) Mean Corpuscular Hemoglobin Concent 33 g/dL (31-37) Red Cell Distribution Width 13.7 % (11.5-14.5) Platelet Count 319 x10^3/uL (140-400) Neutrophils (%) (Auto) 75 % (31-73) H Lymphocytes (%) (Auto) 19 % (24-48) L Monocytes (%) (Auto) 4 % (0-9) Eosinophils (%) (Auto) 2 % (0-3) Basophils (%) (Auto) 0 % (0-3) Neutrophils # (Auto) 7.9 x10^3/uL (1.8-7.7) H Lymphocytes # (Auto) 2.0 x10^3/uL (1.0-4.8) Monocytes # (Auto) 0.5 x10^3/uL (0.0-1.1) Eosinophils # (Auto) 0.2 x10^3/uL (0.0-0.7) Basophils # (Auto) 0.0 x10^3/uL (0.0-0.2) Prothrombin Time 12.7 SEC (11.7-14.0) Prothrombin Time INR 1.0 (0.8-1.1) Sodium Level 146 mmol/L (136-145) H 145 mmol/L (136-145) Potassium Level 3.5 mmol/L (3.5-5.1) 3.7 mmol/L (3.5-5.1) Chloride Level 105 mmol/L (98-107) 107 mmol/L (98-107) Carbon Dioxide Level 29 mmol/L (21-32) 29 mmol/L (21-32) Anion Gap 12 (6-14) 9 (6-14) Blood Urea Nitrogen 13 mg/dL (7-20) 9 mg/dL (7-20) Creatinine 0.8 mg/dL (0.6-1.0) 0.7 mg/dL (0.6-1.0) Estimated GFR (Cockcroft-Gault) 67.5 78.8 BUN/Creatinine Ratio 16 (6-20) Glucose Level 174 mg/dL (70-99) H 113 mg/dL (70-99) H Calcium Level 8.7 mg/dL (8.5-10.1) 8.7 mg/dL (8.5-10.1) Total Bilirubin 0.8 mg/dL (0.2-1.0) Aspartate Amino Transferase (AST) 27 U/L (15-37) Alanine Aminotransferase (ALT) 24 U/L (14-59) Alkaline Phosphatase 87 U/L (46-116) Troponin I Quantitative 0.061 ng/mL (0.000-0.055) 1.152 ng/mL (0.000-0.055) 1.075 ng/mL (0.000-0.055) 0.483 ng/mL (0.000-0.055) JG-Pik-A-Type Natriuretic Peptide 272 pg/mL (0-449) Total Protein 7.7 g/dL (6.4-8.2) Albumin 3.8 g/dL (3.4-5.0) Albumin/Globulin Ratio 1.0 (1.0-1.7) Laboratory Tests 09/07/19 13:28 Laboratory Tests 09/07/19 13:28 09/08/19 07:30 ECHOCARDIOGRAM ECHOCARDIOGRAM <Conclusion> The left ventricular systolic function is normal and the ejection fraction is within normal range. The Ejection Fraction is 63%. Transmitral Doppler flow pattern is Grade I-abnormal relaxation pattern. The left atrium is mildly dilated. The right atrium size is normal. The aortic valve is calcified but opens well. The anterior mitral valve leaflet has a hockey stick appearance but functions normally. The mitral valve is calcified but opens well. Mitral annular calcification is mild. Doppler and Color-flow revealed mild to moderate mitral regurgitation. Doppler and Color Flow revealed mild tricuspid regurgitation. There is severe pulmonary hypertension. The PA pressure was estimated at 61 mmHg. The pulmonary valve is normal in structure and function. There is a trace of pericardial effusion posteriorly. DATE: 07/10/161744 ASSESSMENT/PLAN ASSESSMENT/PLAN 1. Acute hypoxic respiratory failure secondary to choking episode 2. Mild troponin elevation; peak 1.152. Most probably type II, demand ischemia secondary ot hypoxia. CP free. 3. Hypertension; controlled 4. Hyperlipidemia; statin 5. CML 6. Valvular disease; medically managed. Patient expresses desire for conservative measures. Recommendations ASA Echo to assess LV systolic function Lipids Supportive If echo WNL, may discharge from a CV standpoint. SLAVA CHILDERS APRN Sep 08, 2019 11:57
--- NOTE | 2019-09-08 12:29 | NUR ---
SS following for discharge planning. SS reviewed pt chart. Pt is from home alone and is currently on room air. PT/OT ordered. SS will await PT/OT evaluations and recommendations and will proceed accordingly with discharge planning.
--- NOTE | 2019-09-08 12:33 | PDOC ---
PROGRESS NOTES Chief Complaint Chief Complaint Acute hypoxia - 2/2 choking episode. s/p heimlich maneuver. Feeling improved. Will wean O2 as tolerated, no pulm history Elevated troponin - likely from transient hypoxemia and chest trauma with compression. will trend out Chocking - meat lodged in esophagus now out. 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 HTN - on metoprolol HLD - cont statin Hyperglycemia - likely stress related, monitor History of Present Illness History of Present Illness pt and ot eval cont current no cv tele Vitals Vitals Vital Signs Date Time Temp Pulse Resp B/P (MAP) Pulse Ox O2 Delivery O2 Flow Rate FiO2 09/08/19 11:48 98 Room Air 09/08/19 10:35 98.1 70 16 137/63 (87) 98.1 09/07/19 15:40 2.0 Physical Exam General: Alert, Oriented X3, Cooperative, No acute distress Heart: Regular rate Abdomen: Normal bowel sounds, Soft, No tenderness, No hepatosplenomegaly, No masses Extremities: No clubbing, No cyanosis, No edema, Normal pulses, No tenderness/swelling Skin: No rashes, No breakdown, No significant lesion Labs LABS Laboratory Tests Test 09/07/19 13:28 09/07/19 17:30 09/07/19 20:15 09/08/19 07:30 White Blood Count 10.6 x10^3/uL (4.0-11.0) Red Blood Count 4.49 x10^6/uL (3.50-5.40) Hemoglobin 13.6 g/dL (12.0-15.5) Hematocrit 41.6 % (36.0-47.0) Mean Corpuscular Volume 93 fL (79-100) Mean Corpuscular Hemoglobin 30 pg (25-35) Mean Corpuscular Hemoglobin Concent 33 g/dL (31-37) Red Cell Distribution Width 13.7 % (11.5-14.5) Platelet Count 319 x10^3/uL (140-400) Neutrophils (%) (Auto) 75 % (31-73) Lymphocytes (%) (Auto) 19 % (24-48) Monocytes (%) (Auto) 4 % (0-9) Eosinophils (%) (Auto) 2 % (0-3) Basophils (%) (Auto) 0 % (0-3) Neutrophils # (Auto) 7.9 x10^3/uL (1.8-7.7) Lymphocytes # (Auto) 2.0 x10^3/uL (1.0-4.8) Monocytes # (Auto) 0.5 x10^3/uL (0.0-1.1) Eosinophils # (Auto) 0.2 x10^3/uL (0.0-0.7) Basophils # (Auto) 0.0 x10^3/uL (0.0-0.2) Prothrombin Time 12.7 SEC (11.7-14.0) Prothromb Time International Ratio 1.0 (0.8-1.1) Sodium Level 146 mmol/L (136-145) 145 mmol/L (136-145) Potassium Level 3.5 mmol/L (3.5-5.1) 3.7 mmol/L (3.5-5.1) Chloride Level 105 mmol/L (98-107) 107 mmol/L (98-107) Carbon Dioxide Level 29 mmol/L (21-32) 29 mmol/L (21-32) Anion Gap 12 (6-14) 9 (6-14) Blood Urea Nitrogen 13 mg/dL (7-20) 9 mg/dL (7-20) Creatinine 0.8 mg/dL (0.6-1.0) 0.7 mg/dL (0.6-1.0) Estimated GFR (Cockcroft-Gault) 67.5 78.8 BUN/Creatinine Ratio 16 (6-20) Glucose Level 174 mg/dL (70-99) 113 mg/dL (70-99) Calcium Level 8.7 mg/dL (8.5-10.1) 8.7 mg/dL (8.5-10.1) Total Bilirubin 0.8 mg/dL (0.2-1.0) Aspartate Amino Transf (AST/SGOT) 27 U/L (15-37) Alanine Aminotransferase (ALT/SGPT) 24 U/L (14-59) Alkaline Phosphatase 87 U/L (46-116) Troponin I Quantitative 0.061 ng/mL (0.000-0.055) 1.152 ng/mL (0.000-0.055) 1.075 ng/mL (0.000-0.055) 0.483 ng/mL (0.000-0.055) YI-Pst-J-Type Natriuretic Peptide 272 pg/mL (0-449) Total Protein 7.7 g/dL (6.4-8.2) Albumin 3.8 g/dL (3.4-5.0) Albumin/Globulin Ratio 1.0 (1.0-1.7) Assessment and Plan Assessmemt and Plan Problems Medical Problems: (1) Choking Status: Acute Comment Review of Relevant I have reviewed the following items prince (where applicable) has been applied. Labs Laboratory Tests Test 09/07/19 13:28 09/07/19 17:30 09/07/19 20:15 09/08/19 07:30 White Blood Count 10.6 x10^3/uL (4.0-11.0) Red Blood Count 4.49 x10^6/uL (3.50-5.40) Hemoglobin 13.6 g/dL (12.0-15.5) Hematocrit 41.6 % (36.0-47.0) Mean Corpuscular Volume 93 fL (79-100) Mean Corpuscular Hemoglobin 30 pg (25-35) Mean Corpuscular Hemoglobin Concent 33 g/dL (31-37) Red Cell Distribution Width 13.7 % (11.5-14.5) Platelet Count 319 x10^3/uL (140-400) Neutrophils (%) (Auto) 75 % (31-73) Lymphocytes (%) (Auto) 19 % (24-48) Monocytes (%) (Auto) 4 % (0-9) Eosinophils (%) (Auto) 2 % (0-3) Basophils (%) (Auto) 0 % (0-3) Neutrophils # (Auto) 7.9 x10^3/uL (1.8-7.7) Lymphocytes # (Auto) 2.0 x10^3/uL (1.0-4.8) Monocytes # (Auto) 0.5 x10^3/uL (0.0-1.1) Eosinophils # (Auto) 0.2 x10^3/uL (0.0-0.7) Basophils # (Auto) 0.0 x10^3/uL (0.0-0.2) Prothrombin Time 12.7 SEC (11.7-14.0) Prothromb Time International Ratio 1.0 (0.8-1.1) Sodium Level 146 mmol/L (136-145) 145 mmol/L (136-145) Potassium Level 3.5 mmol/L (3.5-5.1) 3.7 mmol/L (3.5-5.1) Chloride Level 105 mmol/L (98-107) 107 mmol/L (98-107) Carbon Dioxide Level 29 mmol/L (21-32) 29 mmol/L (21-32) Anion Gap 12 (6-14) 9 (6-14) Blood Urea Nitrogen 13 mg/dL (7-20) 9 mg/dL (7-20) Creatinine 0.8 mg/dL (0.6-1.0) 0.7 mg/dL (0.6-1.0) Estimated GFR (Cockcroft-Gault) 67.5 78.8 BUN/Creatinine Ratio 16 (6-20) Glucose Level 174 mg/dL (70-99) 113 mg/dL (70-99) Calcium Level 8.7 mg/dL (8.5-10.1) 8.7 mg/dL (8.5-10.1) Total Bilirubin 0.8 mg/dL (0.2-1.0) Aspartate Amino Transf (AST/SGOT) 27 U/L (15-37) Alanine Aminotransferase (ALT/SGPT) 24 U/L (14-59) Alkaline Phosphatase 87 U/L (46-116) Troponin I Quantitative 0.061 ng/mL (0.000-0.055) 1.152 ng/mL (0.000-0.055) 1.075 ng/mL (0.000-0.055) 0.483 ng/mL (0.000-0.055) EQ-Feq-E-Type Natriuretic Peptide 272 pg/mL (0-449) Total Protein 7.7 g/dL (6.4-8.2) Albumin 3.8 g/dL (3.4-5.0) Albumin/Globulin Ratio 1.0 (1.0-1.7) Laboratory Tests Test 09/07/19 13:28 09/07/19 17:30 09/07/19 20:15 09/08/19 07:30 White Blood Count 10.6 x10^3/uL (4.0-11.0) Red Blood Count 4.49 x10^6/uL (3.50-5.40) Hemoglobin 13.6 g/dL (12.0-15.5) Hematocrit 41.6 % (36.0-47.0) Mean Corpuscular Volume 93 fL (79-100) Mean Corpuscular Hemoglobin 30 pg (25-35) Mean Corpuscular Hemoglobin Concent 33 g/dL (31-37) Red Cell Distribution Width 13.7 % (11.5-14.5) Platelet Count 319 x10^3/uL (140-400) Neutrophils (%) (Auto) 75 % (31-73) Lymphocytes (%) (Auto) 19 % (24-48) Monocytes (%) (Auto) 4 % (0-9) Eosinophils (%) (Auto) 2 % (0-3) Basophils (%) (Auto) 0 % (0-3) Neutrophils # (Auto) 7.9 x10^3/uL (1.8-7.7) Lymphocytes # (Auto) 2.0 x10^3/uL (1.0-4.8) Monocytes # (Auto) 0.5 x10^3/uL (0.0-1.1) Eosinophils # (Auto) 0.2 x10^3/uL (0.0-0.7) Basophils # (Auto) 0.0 x10^3/uL (0.0-0.2) Prothrombin Time 12.7 SEC (11.7-14.0) Prothromb Time International Ratio 1.0 (0.8-1.1) Sodium Level 146 mmol/L (136-145) 145 mmol/L (136-145) Potassium Level 3.5 mmol/L (3.5-5.1) 3.7 mmol/L (3.5-5.1) Chloride Level 105 mmol/L (98-107) 107 mmol/L (98-107) Carbon Dioxide Level 29 mmol/L (21-32) 29 mmol/L (21-32) Anion Gap 12 (6-14) 9 (6-14) Blood Urea Nitrogen 13 mg/dL (7-20) 9 mg/dL (7-20) Creatinine 0.8 mg/dL (0.6-1.0) 0.7 mg/dL (0.6-1.0) Estimated GFR (Cockcroft-Gault) 67.5 78.8 BUN/Creatinine Ratio 16 (6-20) Glucose Level 174 mg/dL (70-99) 113 mg/dL (70-99) Calcium Level 8.7 mg/dL (8.5-10.1) 8.7 mg/dL (8.5-10.1) Total Bilirubin 0.8 mg/dL (0.2-1.0) Aspartate Amino Transf (AST/SGOT) 27 U/L (15-37) Alanine Aminotransferase (ALT/SGPT) 24 U/L (14-59) Alkaline Phosphatase 87 U/L (46-116) Troponin I Quantitative 0.061 ng/mL (0.000-0.055) 1.152 ng/mL (0.000-0.055) 1.075 ng/mL (0.000-0.055) 0.483 ng/mL (0.000-0.055) SE-Jra-W-Type Natriuretic Peptide 272 pg/mL (0-449) Total Protein 7.7 g/dL (6.4-8.2) Albumin 3.8 g/dL (3.4-5.0) Albumin/Globulin Ratio 1.0 (1.0-1.7) Medications Current Medications Albuterol/ Ipratropium (Duoneb) 3 ml 1X ONCE NEB Last administered on 09/07/19at 13:25; Start 09/07/19 at 13:15; Stop 09/07/19 at 13:16; Status DC Albuterol/ Ipratropium (Duoneb) 3 ml RTQID NEB Last administered on 09/08/19at 11:48; Start 09/07/19 at 16:00; Stop 09/08/19 at 15:59 Acetaminophen (Tylenol) 500 mg DAILY PO Last administered on 09/08/19at 09:51; Start 09/08/19 at 09:00 Aspirin (Ecotrin) 81 mg DAILY PO Last administered on 09/08/19at 09:52; Start 09/08/19 at 09:00 Atorvastatin Calcium (Lipitor) 10 mg QHS PO Last administered on 09/07/19at 23:33; Start 09/07/19 at 21:00 Cyanocobalamin (Vitamin B-12) 1,000 mcg DAILY PO Last administered on 09/08/19 09:52; Start 09/08/19 at 09:00 Furosemide (Lasix) 40 mg DAILY PO Last administered on 09/08/19at 09:53; Start 09/08/19 at 09:00 Gabapentin (Neurontin) 300 mg BID PO Last administered on 09/08/19 09:51; Start 09/07/19 at 21:00 Losartan Potassium (Cozaar) 50 mg DAILY PO Last administered on 09/08/19 09:55; Start 09/08/19 at 09:00 Potassium Chloride (Klor-Con) 30 meq DAILY PO Last administered on 09/08/19 09:52; Start 09/08/19 at 09:00 Non-Formulary Medication (Dasatinib (Sprycel)) 50 mg DAILY PO ; Start 09/08/19 at 09:00; Status UNV Ondansetron HCl (Zofran Odt) 4 mg PRN Q8HRS PRN PO NAUSEA/VOMITING; Start 09/07/19 at 16:15 Metoprolol Succinate (Toprol Xl) 50 mg DAILY PO Last administered on 09/08/19at 09:54; Start 09/08/19 at 09:00 Enoxaparin Sodium (Lovenox 30mg Syringe) 30 mg Q24H SQ Last administered on 09/07/19at 18:02; Start 09/07/19 at 16:00 Active Scripts Active Zofran (Ondansetron Hcl) 4 Mg Tablet 1 Tab PO Q8HRS PRN Lasix (Furosemide) 40 Mg Tablet 40 Mg PO BID Reported Tasigna (Nilotinib Hcl) 150 Mg Capsule 150 Mg PO DAILY Atorvastatin Calcium 10 Mg Tablet 10 Mg PO DAILY Potassium Chloride 10 Meq Tablet.er 30 Meq PO DAILY Metoprolol Tartrate 25 Mg Tablet 1 Tab PO DAILY16 Celebrex (Celecoxib) 200 Mg Capsule 1 Cap PO DAILY Tylenol Extra Strength (Acetaminophen) 500 Mg Tablet 500 Mg PO DAILY B-12 (Cyanocobalamin (Vitamin B-12)) 1,000 Mcg Tablet 1,000 Mcg PO DAILY Aspir 81 (Aspirin) 81 Mg Tablet.dr 1 Tab PO DAILY Metoprolol Tartrate 50 Mg Tablet 1 Tab PO DAILY07 Gabapentin (Gabapentin) 300 Mg Capsule 300 Mg PO BID Losartan Potassium 50 Mg Tablet 100 Mg PO DAILY Vitals/I & O Vital Sign - Last 24 Hours 09/07/19 09/07/19 09/07/19 09/07/19 13:06 13:25 13:30 14:00 Temp 98.0 98.0 Pulse 95 94 96 Resp 10 18 25 B/P (MAP) 165/89 (114) 139/74 (95) Pulse Ox 95 96 98 95 O2 Delivery Nasal Cannula Nasal Cannula O2 Flow Rate 2.0 2.0 2.0 2.0 09/07/19 09/07/19 09/07/19 09/07/19 14:30 15:00 15:30 15:40 Pulse 96 96 96 Resp 15 18 B/P (MAP) 148/77 (100) 140/69 (92) 131/65 (87) Pulse Ox 96 96 95 94 O2 Delivery Nasal Cannula O2 Flow Rate 2.0 2.0 2.0 2.0 09/07/19 09/07/19 09/07/19 09/07/19 16:00 16:15 19:42 19:45 Temp 98.1 97.9 98.1 97.9 Pulse 94 94 Resp 20 18 B/P (MAP) 147/64 (91) 143/70 (94) Pulse Ox 94 94 O2 Delivery Room Air Room Air Room Air Room Air 09/07/19 09/07/19 09/08/19 09/08/19 19:54 22:59 03:50 07:34 Temp 97.9 97.9 97.4 97.9 97.9 97.4 Pulse 92 72 81 Resp 16 16 16 B/P (MAP) 157/69 (98) 165/75 (105) 172/77 (108) Pulse Ox 94 95 96 O2 Delivery Room Air Room Air Room Air Room Air 09/08/19 09/08/19 09/08/19 09/08/19 07:37 08:00 09:54 09:55 Pulse 87 B/P (MAP) 163/72 163/72 Pulse Ox 98 O2 Delivery Room Air Room Air 09/08/19 09/08/19 10:35 11:48 Temp 98.1 98.1 Pulse 70 Resp 16 B/P (MAP) 137/63 (87) Pulse Ox 94 98 O2 Delivery Room Air Room Air Intake and Output 09/07/19 09/07/19 09/08/19 15:00 23:00 07:00 Intake Total 200 ml Output Total 300 ml 200 ml Balance -300 ml 0 ml JASON SCHROEDER MD Sep 08, 2019 12:33
[2019-09-08 14:32] VITALS: BP 136/66
--- NOTE | 2019-09-08 15:34 | PDOC3 ---
Discharge Summary Visit Information Date of Admission: Sep 07, 2019 Date of Discharge: Sep 08, 2019 Final Diagnosis Acute hypoxia - 2/2 choking episode. s/p heimlich maneuver. Feeling improved. Will wean O2 as tolerated, no pulm history Elevated troponin - likely from transient hypoxemia and chest trauma with compression. will trend out Choking - meat lodged in esophagus now out. 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 HTN - on metoprolol HLD - cont statin Hyperglycemia - likely stress related, monitor Problems Medical Problems: (1) Choking Status: Acute Brief Hospital Course Allergies Allergies Coded Allergies Type Severity Reaction Last Updated Verified No Known Drug Allergies 08/31/16 No Vital Signs Vital Signs Date Time Temp Pulse Resp B/P (MAP) Pulse Ox O2 Delivery O2 Flow Rate FiO2 09/08/19 14:32 97.8 75 16 136/66 (89) 95 Room Air 97.8 09/07/19 15:40 2.0 Lab Results Laboratory Tests Test 09/07/19 13:28 09/07/19 17:30 09/07/19 20:15 09/08/19 07:30 White Blood Count 10.6 x10^3/uL (4.0-11.0) Red Blood Count 4.49 x10^6/uL (3.50-5.40) Hemoglobin 13.6 g/dL (12.0-15.5) Hematocrit 41.6 % (36.0-47.0) Mean Corpuscular Volume 93 fL (79-100) Mean Corpuscular Hemoglobin 30 pg (25-35) Mean Corpuscular Hemoglobin Concent 33 g/dL (31-37) Red Cell Distribution Width 13.7 % (11.5-14.5) Platelet Count 319 x10^3/uL (140-400) Neutrophils (%) (Auto) 75 % (31-73) Lymphocytes (%) (Auto) 19 % (24-48) Monocytes (%) (Auto) 4 % (0-9) Eosinophils (%) (Auto) 2 % (0-3) Basophils (%) (Auto) 0 % (0-3) Neutrophils # (Auto) 7.9 x10^3/uL (1.8-7.7) Lymphocytes # (Auto) 2.0 x10^3/uL (1.0-4.8) Monocytes # (Auto) 0.5 x10^3/uL (0.0-1.1) Eosinophils # (Auto) 0.2 x10^3/uL (0.0-0.7) Basophils # (Auto) 0.0 x10^3/uL (0.0-0.2) Prothrombin Time 12.7 SEC (11.7-14.0) Prothromb Time International Ratio 1.0 (0.8-1.1) Sodium Level 146 mmol/L (136-145) 145 mmol/L (136-145) Potassium Level 3.5 mmol/L (3.5-5.1) 3.7 mmol/L (3.5-5.1) Chloride Level 105 mmol/L (98-107) 107 mmol/L (98-107) Carbon Dioxide Level 29 mmol/L (21-32) 29 mmol/L (21-32) Anion Gap 12 (6-14) 9 (6-14) Blood Urea Nitrogen 13 mg/dL (7-20) 9 mg/dL (7-20) Creatinine 0.8 mg/dL (0.6-1.0) 0.7 mg/dL (0.6-1.0) Estimated GFR (Cockcroft-Gault) 67.5 78.8 BUN/Creatinine Ratio 16 (6-20) Glucose Level 174 mg/dL (70-99) 113 mg/dL (70-99) Calcium Level 8.7 mg/dL (8.5-10.1) 8.7 mg/dL (8.5-10.1) Total Bilirubin 0.8 mg/dL (0.2-1.0) Aspartate Amino Transf (AST/SGOT) 27 U/L (15-37) Alanine Aminotransferase (ALT/SGPT) 24 U/L (14-59) Alkaline Phosphatase 87 U/L (46-116) Troponin I Quantitative 0.061 ng/mL (0.000-0.055) 1.152 ng/mL (0.000-0.055) 1.075 ng/mL (0.000-0.055) 0.483 ng/mL (0.000-0.055) UH-Jwz-U-Type Natriuretic Peptide 272 pg/mL (0-449) Total Protein 7.7 g/dL (6.4-8.2) Albumin 3.8 g/dL (3.4-5.0) Albumin/Globulin Ratio 1.0 (1.0-1.7) Laboratory Tests Test 09/07/19 17:30 09/07/19 20:15 09/08/19 07:30 Troponin I Quantitative 1.152 ng/mL (0.000-0.055) 1.075 ng/mL (0.000-0.055) 0.483 ng/mL (0.000-0.055) Sodium Level 145 mmol/L (136-145) Potassium Level 3.7 mmol/L (3.5-5.1) Chloride Level 107 mmol/L (98-107) Carbon Dioxide Level 29 mmol/L (21-32) Anion Gap 9 (6-14) Blood Urea Nitrogen 9 mg/dL (7-20) Creatinine 0.7 mg/dL (0.6-1.0) Estimated GFR (Cockcroft-Gault) 78.8 Glucose Level 113 mg/dL (70-99) Calcium Level 8.7 mg/dL (8.5-10.1) Brief Hospital Course Ms. Adasm is a 89 old female, admit after failing to swallow meat. choked on a steak that wasnt masticated well enough. she felt well, wanted DC 09/08 echo done Discharge Information Condition at Discharge: Improved Follow Up: Weeks Disposition/Orders: D/C to Home Scheduled Acetaminophen (Tylenol Extra Strength) 500 Mg Tablet, 500 MG PO DAILY, (Reported) Entered as Reported by: JULI HILL on 08/31/161602 Last Action: Continued on 09/07/191557 by NINA JACKSON MD Aspirin (Aspir 81) 81 Mg Tablet.dr, 1 TAB PO DAILY, #30 Ref 5 (Reported) Entered as Reported by: JULI HILL on 08/31/161602 Last Action: Continued on 09/07/191557 by NINA JACKSON MD Atorvastatin Calcium (Atorvastatin Calcium) 10 Mg Tablet, 10 MG PO DAILY for FOR CHOLESTEROL, #30 Ref 0 (Reported) Entered as Reported by: JULI HILL on 08/31/161602 Last Action: Continued on 09/07/191557 by NINA JACKSON MD Celecoxib (Celebrex) 200 Mg Capsule, 1 CAP PO DAILY, #30 Ref 2 (Reported) Entered as Reported by: JULI HILL on 08/31/161602 Cyanocobalamin (Vitamin B-12) (B-12) 1,000 Mcg Tablet, 1,000 MCG PO DAILY, (Reported) Entered as Reported by: JULI HILL on 08/31/161602 Last Action: Continued on 09/07/191557 by NINA JACKSON MD Furosemide (Lasix) 40 Mg Tablet, 40 MG PO BID, #14 Prescribed by: ALEJANDRO YUNG on 09/14/16 1341 Last Action: Continued on 09/07/191557 by NINA JACKSON MD Gabapentin (Gabapentin ) 300 Mg Capsule, 300 MG PO BID, (Reported) Entered as Reported by: JULI HILL on 08/31/161602 Last Action: Continued on 09/07/191557 by NINA JACKSON MD Losartan Potassium (Losartan Potassium) 50 Mg Tablet, 100 MG PO DAILY for , (Reported) Entered as Reported by: JULI IHLL on 08/31/161602 Last Action: Edited on 09/07/191707 by María Jimenez Metoprolol Tartrate (Metoprolol Tartrate) 50 Mg Tablet, 1 TAB PO DAILY07, #60 Ref 5 (Reported) Entered as Reported by: JULI HILL on 08/31/161602 Metoprolol Tartrate (Metoprolol Tartrate) 25 Mg Tablet, 1 TAB PO DAILY16, #180 Ref 1 (Reported) Entered as Reported by: JULI HILL on 08/31/161602 Last Action: HELD on 09/07/191556 by NINA JACKSON MD Nilotinib Hcl (Tasigna) 150 Mg Capsule, 150 MG PO DAILY for , (Reported) Entered as Reported by: María Jimenez on 09/07/191707 Last Taken: 150 on Unknown Date & Time Last Action: New Order on 09/07/191707 by María Jimenez Potassium Chloride (Potassium Chloride) 10 Meq Tablet.er, 30 MEQ PO DAILY, (Reported) Entered as Reported by: JULI HILL on 08/31/161602 Last Action: Continued on 09/07/191557 by NINA JACKSON MD Scheduled PRN Ondansetron Hcl (Zofran) 4 Mg Tablet, 1 TAB PO Q8HRS PRN for NAUSEA, #12 Prescribed by: SAIDA KNIGHT D.O. on 05/10/17 1820 Last Action: Converted on 09/07/19 1558 by NINA JACKSON MD Discontinued Medications Dasatinib (Sprycel) 50 Mg Tablet, 50 MG PO DAILY, (Reported) Entered as Reported by: JULI HILL on 08/31/16 1603 Last Action: Discontinued on 09/08/19826 by María Jimenez Patient Instructions Patient Instructions face to face discussed plan JASON SCHROEDER MD Sep 08, 2019 15:34
[2019-09-08] MEDS: ENOXAPARIN 30 MG/0.3 ML SYRINGE. SQ SCH (16:00)
[2019-09-08 16:16] LABS: CHOLESTEROL/HDL RATIO 2.2
[2019-09-08 19:21] VITALS: BP_SYST 181; BP_SYST 215; BP_DIAS 86; BP_DIAS 95
--- NOTE | 2019-09-08 19:50 | NUR ---
Assessment completed vss poc explained pt denies pain at time of assessment pt reoriented to surroundings and call light placed in reach . Pt reminded to call for assistance prior to getting oob.Will resume care and continue to monitor pt.
[2019-09-08] MEDS: ATORVASTATIN CALCIUM 10 MG TABLET. PO SCH (20:56)
[2019-09-08 22:36] VITALS: BP 152/81
[2019-09-09 02:46] VITALS: BP 197/89
[2019-09-09 05:05] VITALS: BP 173/85
[2019-09-09 07:00] VITALS: BP 156/80
[2019-09-09] MEDS: GABAPENTIN 300 MG CAPSULE. PO SCH (08:27)
[2019-09-09] MEDS: METOPROLOL SUCC 24HR ER 50 MG TAB.ER.24H. PO SCH (08:27)
[2019-09-09 08:28] VITALS: BP 156/80
[2019-09-09] MEDS: ACETAMINOPHEN 500 MG TABLET PO SCH (08:28)
[2019-09-09] MEDS: FUROSEMIDE 40 MG TABLET. PO SCH (08:28)
[2019-09-09] MEDS: POTASSIUM CHLORIDE 10 MEQ TABLET.ER. PO SCH (08:28)
[2019-09-09] MEDS: LOSARTAN POTASSIUM 50 MG TABLET. PO SCH (08:28)
[2019-09-09] MEDS: ASPIRIN ENTERIC COATED 81 MG TABLET.DR. PO SCH (08:28)
[2019-09-09] MEDS: CYANOCOBALAMIN (VITAMIN B-12) 1,000 MCG TABLET. PO SCH (08:29)
[2019-09-09] MEDS: DASATINIB 50 MG PO SCH (08:29)
--- NOTE | 2019-09-09 10:13 | CARD ---
MR#: [id number] Date of Study: 09/08/2019 Ordering Physician: SLAVA CHILDERS, Referring Physician: SLAVA CHILDERS, Tech: Mandie Murrell APPROVED REPORT EXAM: Two-dimensional and M-mode echocardiogram with Doppler and color Doppler. Other Information Quality : AverageHR: 76bpm Technically limited study due to body habitus. INDICATION Elevated Troponin 2D DIMENSIONS RVDd2.5 (2.9-3.5cm)Left Atrium(2D)3.2 (1.6-4.0cm) IVSd1.0 (0.7-1.1cm)Aortic Root(2D)2.7 (2.0-3.7cm) LVDd4.2 (3.9-5.9cm)LVOT Diameter1.9 (1.8-2.4cm) PWd1.0 (0.7-1.1cm)LVDs2.9 (2.5-4.0cm) FS (%) 30.3 %SV44.6 ml LVEF(%)58.1 (>50%) Aortic Valve AoV Peak Gaudencio.133.6cm/sAoV VTI27.3cm AO Peak GR.7.1mmHgLVOT VTI 19.42cm AO Mean GR.3mmHg Mitral Valve MV E Eeellzlr158.8cm/sMV DECEL [id number] MV A Tackyfjj338.4cm/sE/A Ratio0.9 TDI Lateral E' P. V5.92cm/sMedial E' P. V5.66cm/s E/Lateral E'18.7E/Medial E'19.6 Tricuspid Valve TR P. Pbdgcatw548il/sRAP BLSTMEEQ1bsPt TR Peak Gr.01fkIwILGB42skDc Pulmonary Vein S1 Dlukfkgj23.2cm/sS2 Rjsplcwp36.45cm/s D2 Cfbrotbk59.5cm/sPVa brhejwlu255pwnn LEFT VENTRICLE The left ventricle is normal size. There is borderline concentric left ventricular hypertrophy. The l eft ventricular systolic function is normal and the ejection fraction is within normal range. The Eje ction Fraction is 50-55%. There is normal LV segmental wall motion. Transmitral Doppler flow pattern is Grade I-abnormal relaxation pattern. RIGHT VENTRICLE The right ventricle is normal size. There is normal right ventricular wall thickness. The right ventr icular systolic function is normal. ATRIA The left atrium size is normal. The right atrium size is normal. The interatrial septum is intact wit h no evidence for an atrial septal defect or patent foramen ovale as noted on 2-D or Doppler imaging. AORTIC VALVE The aortic valve is calcified and not well visualized. Doppler and Color Flow revealed no significant aortic regurgitation. There is no significant aortic valvular stenosis. MITRAL VALVE The mitral valve is normal in structure and function. There is no evidence of mitral valve prolapse. There is no mitral valve stenosis. Doppler and Color-flow revealed trace to mild mitral regurgitation . TRICUSPID VALVE The tricuspid valve is normal in structure and function. Doppler and Color Flow revealed trace to mil d tricuspid regurgitation with an estimated PAP of 42 mmHg. There is no tricuspid valve prolapse or v egetation. There is no tricuspid valve stenosis. PULMONIC VALVE The pulmonic valve is not well visualized. Doppler and Color Flow revealed no pulmonic valvular regur gitation. There is no pulmonic valvular stenosis. GREAT VESSELS The aortic root is normal in size. The IVC is normal in size and collapses >50% with inspiration. PERICARDIAL EFFUSION There is small left pleural effusion. There is no evidence of significant pericardial effusion. Critical Notification Critical Value: No <Conclusion> The left ventricular systolic function is normal and the ejection fraction is within normal range. Th e Ejection Fraction is 50-55%. There is normal LV segmental wall motion. Doppler and Color Flow revealed trace to mild tricuspid regurgitation with an estimated PAP of 42 mmH g. Signed by : Juan Delgado, Electronically Approved : 09/09/2019 10:13:50
--- NOTE | 2019-09-09 11:40 | NUR ---
Discharge Note: HERMES STEVEN Discharge instructions and discharge home medications reviewed with Patient and a copy given. All questions have been answered and understanding verbalized.
== END 2019-09-09 11:40 | disposition home or self-care (01) | DRG 189 ==
LOC: ER 13:03 → 2 NORTH 14:25
PROVIDERS: ADMIT Internal Medicine; ATTEND Internal Medicine
DX: J96.01 Acute respiratory failure with hypoxia (principal); C92.11 Chronic myeloid leukemia, BCR/ABL-positive, in remission; I24.8 Other forms of acute ischemic heart disease; M19.90 Unspecified osteoarthritis, unspecified site; E78.00 Pure hypercholesterolemia, unspecified; I11.0 Hypertensive heart disease with heart failure; E78.5 Hyperlipidemia, unspecified; Z66 Do not resuscitate; I50.9 Heart failure, unspecified; K21.9 Gastro-esophageal reflux disease without esophagitis; R73.9 Hyperglycemia, unspecified; Z79.899 Other long term (current) drug therapy; Z83.3 Family history of diabetes mellitus; Z82.49 Family history of ischemic heart disease and other diseases of the circulatory system
CPT/HCPCS: 36415; 71045; 80048; 80053; 80061; 83880; 84484; 85025; 85610; 93005; 93306; 94640; 94760; J1650; J7620; 97530; 99285-25; G0378